=== PATIENT | male | born 1965 | race Caucasian/White ===

== ENCOUNTER 2020-05-23 20:13 | Emergency (ER) | payer OTHER, SELFPAY ==
[2020-05-23 20:14] VITALS: BP 143/94; PULSE 108; RESP 18; TEMP 36.2; O2SAT 100; BMI 25.8
--- NOTE | 2020-05-23 20:42 | RAD_ITS ---
STUDY: X-RAY CHEST REASON FOR EXAM: Male, 55 years old. Chest pain TECHNIQUE: Frontal view of the chest COMPARISON: None. FINDINGS: The lungs are clear. There are no pleural effusions. There is no pneumothorax. The heart is normal in size. The visualized osseous structures are within normal limits. RAD/Chest 1 View (Portable) IMPRESSION: No acute thoracic pathology. Electronically Signed: Artie Coy, at 21:11 EDT Tel , Service support ,
--- NOTE | 2020-05-23 20:42 | EKG12_ITS ---
Test Reason : DIZZY Blood Pressure : / mmHG Vent. Rate : 091 BPM Atrial Rate : 091 BPM P-R Int : 156 ms QRS Dur : 094 ms QT Int : 364 ms P-R-T Axes : 056 065 -11 degrees QTc Int : 447 ms Sinus rhythm with Premature supraventricular complexes Nonspecific ST and T wave abnormality Abnormal ECG Confirmed by SELENE ALFARO, SHANTA ([id number]), editorial director JOSE BERGERON ([id number]) on 05/27/2020 11:16:11 AM Referred By: GABBIE Confirmed By:SHANTA MORTON MD
--- NOTE | 2020-05-23 20:47 | ED.VISSUMM ---
- ER Visit Summary Date of Service: 05/23/20 Chief Complaint: Dizziness, paresthesias, chest pain History of Present Illness: The patient is a 55 M who presents with dizziness that is been getting worse over the past 3 to 5 days. Patient states it is gradually getting worse. Patient describes it as lightheadedness. Patient also admits to some pressure in his left arm and chest that began tonight. Patient states this improves with resting. Patient states he thinks he had COVID-19 3 weeks ago. Patient states his family recently got over COVID-19. Patient admits to subjective chills and sweats. Patient denies any fevers. Patient denies any cough. Patient denies any nausea or vomiting. Physical Examination: Vital signs are stable. Patient is afebrile. Patient is in no acute distress. Oral mucosa is pink and moist. Neck is supple. Trachea is midline. There is no JVD noted. Heart was regular rate and rhythm. Lungs are clear but diminished bilaterally. Abdomen is soft. Bowel sounds are normal. There is no tenderness. There is no rebound or guarding noted. Skin is warm dry. Cranial nerves II through XII are intact. There are no focal motor or sensory deficits noted. Extremities are intact. There is no calf tenderness or edema. Test Results: EKG shows normal sinus rhythm with rate of 91. There are occasional PVCs noted. There are no acute ST or T wave changes. There are no prior EKGs available for comparison. Portable chest x-ray was obtained. There is no acute cardiopulmonary process. This was interpreted by the radiologist and reviewed by myself. CBC and comprehensive metabolic profile were obtained and were essentially within normal limits. Glucose was slightly elevated at 203. Troponin was normal. COVID-19 test was ordered and is pending. Emergency Department Course and Treatment: Patient was given IV fluids. Patient was advised of his findings. Patient was advised that this is likely a viral illness. Patient was advised that this could be COVID-19. Patient was advised his COVID-19 test is a send out and he will need to follow-up with his primary care physician in 3 to 5 days for results. Patient was instructed drink plenty of fluids. Patient was instructed to take Tylenol or ibuprofen as needed for any pain or fever. Patient understood and was agreeable with the plan. All questions were answered. Disposition: Discharge home Impression: Viral illness This note was generated with Dragon dictation software. It may contain incorrect words, spelling, and punctuation that were not noted in review of the chart prior to signing ED Disposition - Plan for ED Patient: Disposition: Home or Assisted Living Diagnosis: Viral illness Instructions: ED Viral Syndrome Referrals: Cosme Anderson MD [Primary Care Provider] - 3-5 Days
[2020-05-23 20:58] LABS: Absolute Lymphocyte Count 1.06 X10^3/uL (0.83-4.51); Absolute Neutrophil Count 7.6 X10^3/uL (2.0-7.7); Basophil# 0.02 X10^3/uL; Basophil% 0.2 % (0-1); Eosinophil# 0.02 X10^3/uL; Eosinophils% 0.2 % (0-5); Hematocrit 43.3 % (40-54); Hemoglobin 14.8 g/dL (13.0-16.5); Lymphocyte # 1.06 X10^3/ul (4.0); Lymphocyte % 11.4 % (19-41); Mean Corp Hgb Conc 34.2 g/dL (32-36); Mean Corpuscular Hgb 31.2 pg (27.0-32.0); Mean Corpuscular Volume 91.2 fL (80-94); Mean Platelet Vol. 9.9 fl (6.2-12.0); Monocyte# 0.56 X10^3/uL; NRBC Flagged by Analyzer 0 % (0-5); Neutrophil # 7.59 X10^3/uL (2.7-7.7); Neutrophil % 81.9 % (47-70); Platelet Count 329 K/mm3 (150-450); RBC Distribution Width CV 11.6 % (11.6-14.6); RBC Distribution Width SD 38.7 fl (35.1-43.9); Red Blood Count 4.75 M/mm3 (4.6-6.2); White Blood Count 9.3 K/mm3 (4.4-11.0)
[2020-05-23 21:14] VITALS: BP 129/86; PULSE 102; RESP 18; TEMP 36.9; O2SAT 98
[2020-05-23 21:15] LABS: ALB/GLOB Ratio 1.1 RATIO (0.9-2.4); AST(SGOT) 18 U/L (15-37); Alanine Aminotransfer ALT/SGPT 16 U/L (16-61); Albumin, Serum 3.9 g/dL (3.2-5.0); Alkaline Phosphatase 57 U/L (45-117); Anion Gap 7 (5-15); BUN 15 mg/dL (7-18); BUN/Creat Ratio 12.8 RATIO (10-20); Calcium,Total 8.8 mg/dL (8.5-10.1); Chloride 108 mmol/L (98-107); Creatinine, Serum 1.17 mg/dL (0.70-1.30); EST Glomerular Filtration Rate 69 mL/min (>60); Est Glom Filt Rate - Afr Amer 84 mL/min (>60); Estimated Creatinine Clearance 80.14 ml/min; Globulin 3.5 g/dL (2.2-4.2); Glucose 203 mg/dL (74-106); Potassium 3.4 mmol/L (3.5-5.1); Protein, Total 7.4 g/dL (6.4-8.2); Sodium Level 139 mmol/L (136-145)
[2020-05-23] MEDS: 0.9% Normal Saline 1,000 ML 1000 ML IV (21:20)
--- NOTE | 2020-05-23 21:45 | ED.RN ---
family updated on patient condition at this time
--- NOTE | 2020-05-23 22:07 | ED.RN ---
family updated on condition at this time
[2020-05-23 22:44] VITALS: BP 152/97; PULSE 95; RESP 16; TEMP 37; O2SAT 98
[2020-05-23 23:35] VITALS: BP 126/81; PULSE 91; RESP 14; O2SAT 97
== END 2020-05-23 23:42 | disposition home or self-care (01) ==
PROVIDERS: Emergency Provider Emergency Medicine
DX: B34.9 Viral infection, unspecified (principal)
CPT/HCPCS: 71045; 80053; 84484; 85025; 87635; 93005; 99283; A4216; U0003

== ENCOUNTER 2023-09-27 06:37 | Day surgery (SDC) | payer SELFPAY, OTHER ==
--- OUTSIDE RECORDS SUMMARY | 2023-09-27 06:42 | XMS RPT_ITS | CCD ---
Author Name Unknown Address [facility] [facility] [address] [place] [address] Organization [facility] Care Team Providers Care Site Auditor Name Role Phone QUETA Hughes CNP, DARLINE Esteban Primary Care Phys ician QUETA Hughes CNP, DARLINE Esteban Attending U ashanti Hughes CNP, DARLINE Esteban Primary Care U navailable QUETA Hughes CNP, DARLINE Esteban Attending U navailable QUETA Hughes CNP, DARLINE Esteban Primary Care U navailable Medications Current Medications Medication Drug Class(es) Dates Sig (Normalized) Sig (Original) aspirin 81 mg oral tablet (4 sources) Platelet Aggregation Inhibitor, Nonsteroidal Anti-inflammatory Drug Start: 06-25-2020 End: 06-20-2021 aspirin 81 mg oral tablet, chewable Dose : 81 mg = 1 tab(s), Oral, qDayM, # 90 tab(s), 3 Refill(s), Pharmacy: [id number], 182.8, cm, 06/25/20 10:45:00 EST, Height, kg, 06/25/20 10:45:00 EST, Dosing Weight Start Date: 06/25/20 Stop Date: 06/20/21 Status: Ordered Problems Problem Classification Problem Date Documented Da te Episodic/Chronic Abdominal hernia (4 sources) Hiatal hernia 06-09-2020 Episodic Results Test Name Value Interpretation Reference Range Facil ity Encounters Encounter Date Encounter Type Care Provider Facility Start: 04-02-2023 End: 04-02-2023 Patient encounter procedure DARLINE Hughes CNP [facility] Start: 09-25-2022 End: 03-05-2023 ambulatory DARLINE Hughes PRODUCT DESIGN MANAGER Facility:[facility] Start: 09-25-2022 End: 09-25-2022 Patient encounter procedure DARLINE Eulalia QUETA DRAWER IN [employer] - PRODUCT DESIGN MANAGER [facility] Start: 12-12-2021 End: 12-13-2021 ambulatory DARLINE Eulalia QUETA DRAWER [employer] - PRODUCT DESIGN MANAGER Facility:[facility] Start: 12-12-2021 End: 12-12-2021 Patient encounter procedure DARLINE Eulalia QUETA DRAWER IN [employer] [employer] - PRODUCT DESIGN MANAGER [facility] Start: 05-23-2021 End: 05-23-2021 Patient encounter procedure DARLINE Esteban QUETA DRAWER IN [employer] - PRODUCT DESIGN MANAGER [facility] Procedures Date Procedure Procedure Detail Performing Clinician Start: 05-28-2020 Cardiac catheterization DARLINE BIRCH DRAWER [employer] - PRODUCT DESIGN MANAGER Payers Date Payer Category Payer Unknown [id number] 1965 Unknown [id number] 1965 Unknown [id number] Social History Date Type Detail Facility Start: 05-30-2020 Never smoked t obacco (finding) [facility] Sex Assigned At [facility] Evaluation + Plan note Laboratory Note Date & Type Note Facility Evaluation + Plan note Future Appointments Appointment Date:06/12/2021 04:00:00 PM Scheduled Provider:DARLINE BIRCH APRN, CNP Location:[facility] Appointment Type: OV Follow Up Future Scheduled TestsSedimentation Rate Automated 06/25/20 [facility] Evaluation + Plan note Note Date & Type Note Facility Evaluation + Plan note Future Appointments Appointment Date:12/18/2021 10:15:00 AM Scheduled Provider: Location:[facility] Appointment Type:CV OV Appointment Date:12/22/2021 08:20:00 AM Scheduled Provider:DARLINE BIRCH APRN, CNP Location:[facility] Appointment Type:PC OV Follow Up [facility] Evaluation + Plan note Note Date & Type Note Facility Evaluation + Plan note Future Appointments Appointment Date:09/28/2022 09:20:00 AM Scheduled Provider:DARLINE BIRCH APRN, CNP Location:[facility] Appointment Type:PC OV Follow Up [facility] Evaluation + Plan note Note Date & Type Note Facility Evaluation + Plan note Future Appointments Appointment Date:04/11/2023 09:40:00 AM Scheduled Provider:DARLINE BIRCH APRN, CNP Location:[facility] Appointment Type:PC OV Follow Up [facility] Hospital course Narrative Note Date & Type Note Facility Hospital course Narrative No data available for this section [facility] Hospital Discharge instructions Note Date & Type Note Facility Hospital Discharge instructions No data available for this section [facility] Progress note Note Date & Type Note Facility Progress note No data available for this section [facility] Summary Purpose Family History No Family History Records Found No data available for this section Advance Directives No Advanced Directives Records Found Additional Source Comments Care Team (unrecognized sect ion and content) Personnel Name: DARLINE BIRCH APRN, CNP Address: [address] [place] [address] Care Team Personnel Name: DARLINE BIRCH APRN, CNP Position: [employer] Handler Member Role: Primary Care Physician Address: Address: [address] [place] [address] Care Team Related Persons Name: FAUSTINA RODRIGUEZ Care Team (unrecognized sect ion and content) Care Team Personnel Name: QUETA, DARLINE D DRAWER IN [employer] - PRODUCT DESIGN MANAGER Position: [employer] Handler Member Role: Primary Care Physician Address: Address: [address] [place] [address]- Care Team Related Persons Name: FAUSTINA RODRIGUEZ (unrecognized sect ion and content) No Status Records Found INFORMATION SOURCE (unrecogn ized section and content) FOR RECORDS PERTAINING TO PATIENTS WHO ARE OR HAVE BEEN ENROLLED IN A CHEMICAL DEPENDENCY/SUBSTANCEABUSE PROGRAM, SOME INFORMATION MAY BE OMITTED. This clinical summary was aggregated from multiple sources. Caution should be exercised in using it in the provision of clinical care. This summary normalizes information from multiple sources, and as a consequence, information in this document may materially change the coding, format and clinical context of patient data. In addition, data may be omitted in some cases. CLINICAL DECISIONS SHOULD BE BASED ON THE PRIMARY CLINICAL RECORDS. [employer] provides no warranty or guarantee of the accuracy or completeness of information in this document.
--- NOTE | 2023-09-27 06:48 | PCM.HP.BLA ---
History and Physical Date of Admission: 09/27/23 isit Reasons: HIATAL HERNIA Chief Complaint: Hiatal Hernia Security Site Supervisor Required: No Is patient in pain?: No Allergies No Known Allergies Allergy (Verified 09/15/23 14:41) Medications aspirin 81 mg capsule 81 mg PO DAILY 09/15/23 [History Confirmed 09/15/23] ezetimibe 10 mg tablet (Zetia) 10 mg PO DAILY 09/15/23 [History Confirmed 09/15/23] metoprolol tartrate 25 mg tablet 12.5 mg PO BID 09/15/23 [History Confirmed 09/15/23] omeprazole 40 mg capsule,delayed release 40 mg PO DAILY 09/15/23 [History Confirmed 09/15/23] [facility] Medical History (Updated 09/15/23 @ 14:38 by Linda Lyle) Abdominal pain Gastroesophageal reflux disease with hiatal hernia History of back problems Hypercholesterolemia Sleep apnea Surgical History (Updated 09/15/23 @ 14:39 by Linda Lyle) History of cardiac cath History of right inguinal hernia repair Family History (Updated 09/15/23 @ 14:39 by Linda Lyle) Father Heart disease Social History (Updated 09/15/23 @ 14:40 by Linda Lyle) Smoking Status: Former smoker alcohol intake: current alcohol intake frequency: holidays/special occasions only substance use type: does not use HPI HPI HPI: 58-year-old gentleman is being referred by César LOCKHART for surgical consultation regarding a hiatal hernia and a written compromise surgical consult recommendations will return to him. The patient has concerns regarding recurrent reflux and heartburn sensation. Recurrent belching. Occasional sore throat. By report he had had a previous barium swallow on June 05, 2020. A small sliding hiatal hernia was noted. As of additional note that June 05, 2020 had a right upper quadrant ultrasound that was normal. He had an echocardiogram on May 28, 2020 demonstrating ejection fraction of 55 to 60%. He also had a chest CT scan June 25, 2020 showing resolution of a 1.4 cm groundglass opacity that was felt to represent postinflammatory change. There was no comment about hiatal hernia in that evaluation. May 28, 2020 had a cardiac catheterization suggesting no evidence of clinically significant obstructive coronary disease. Among his other medications on low-dose aspirin and ezetimibe and metoprolol and omeprazole 40 mg daily.. The patient notes today that he is concerned about some epigastric pressure. He is concerned about a left anterior chest pressure. He states that he will often pressure that extends up his anterior face into his forehead. He notes some grumbling discomfort of his generalized abdomen. He knows that he has hiatal hernia. He states that I assisted an acquaintance of his recently with a hiatal hernia repair. The patient was thinking about going to [place] for surgery.Then he states that rarely does he sense heartburn. ROS General General: No weight change, appetite, fatigue, colon cancer, breast cancer or weakness HEENT HEENT: No difficulty swallowing, eye injury, eye surgery, swollen glands or hoarseness Endo Endocrine: No thyroid disease, diabetes mellitus, thyroid cancer, Hair loss, heat intolerance or cold intolerance Skin Skin: No rash or changing moles Breast Breast: No left breast lump, right breast lump, nipple discharge, breast pain, abnormal mammogram, abnormal US or breast enlargement Musc Musculoskeletal: Yes back problems; No arthritis, rheumatoid arthritis, gout or joint pain Cardio Cardiovascular: No murmur, pacemaker, heart disease, atrial fibrillation, high blood pressure, heart attack, heart stent, palpitations, shortness of breat with exertion or chest pain Additional Details: Hypercholesterolemia Psych Psychiatric: No depression, anxiety or hearing voices Resp Respiratory: No shortness of breath, Yes sleep apnea, No cough, No COPD, No asthma, No emphysema and No wheezing Gastro Gastrointestinal: Yes abdominal pain, No nausea or vomiting, No diarrhea, No constipation, No blood in stool, No acid reflux, No hemorrhoids, No ulcers, No gallbladder problem and No black,tarry stools Palmer Hematologic: No blood thinners, No blood disorders, No bleeding, No anemia and No blood clots Additional Details: Baby aspirin daily Neuro Neurologic: No system reviewed and no additional complaints, except as documented, No as per HPI, No abnormal gait, No abnormal hearing, No abnormal movements, No abnormal speech, No behavioral changes, No burning sensations, No confusion, No convulsions, No disequilibrium, No dizziness, No localized weakness, No frequent falls, No headache(s), No lack of coordination, No loss of vision, No memory loss, No numbness, No other visual disturbances, No radicular pain, No restless legs, No sensory deficit, No syncope, No tingling, No tremor(s), No weakness and No other Exam Const General: cooperative, healthy appearing, comfortable and no acute distress HENMT Head: normal to inspection Eyes General: appearance normal, both eyes and all related structures Neck Neck: normal visual inspection Chest Chest palpation & inspection: normal inspection of the chest Resp Effort & Inspection: normal respiratory effort Auscultation: clear to auscultation bilaterally Cardio Rate: regular rate Rhythm: regular rhythm GI Palpation: soft and no hepatosplenomegaly Musc Cervical Spine: normal cervical lordosis Skin General: no rashes or lesions noted Neuro General: patient alert, patient awake and patient oriented x3 Extrem General: normal to inspection and no calf tenderness Psych Appearance: grossly normal Assessment and Plan Assessment and Plan (1) Gastroesophageal reflux disease with hiatal hernia: Status: Acute Plan: I instructed the patient that I had a lesser suspicion that his left anterior chest discomfort is GI in nature. I think very possibly his epigastric discomfort and intermittent reflux symptoms we should further assess with an esophagogastroduodenoscopy with possible biopsy. He has generalized abdominal discomfort is less clear. The patient states that most of the symptoms occurred in 2019 after he incurred COVID-19. We briefly discussed surgical treatment options for symptomatic hiatal hernias. I am not sure that he will need this direction. If I will base this upon the findings of the upper endoscopy. He has had an opportunity to ask and have questions answered. He is willing to pursue the upper scope and then we can help direct him further. I appreciate the option of assisting with the surgical care. Copy: César Jonas, COMPENSATION MANAGER Jossue Belle M.D., F.A.C.S I have examined the patient and the H&P has been reviewed. There are no clinical changes since date of exam. Jossue Belle M.D., F.A.C.S.
[2023-09-27] MEDS: Lactated Ringers 1,000 ML 15 ML IV (07:02)
[2023-09-27 07:03] VITALS: BP 121/79; PULSE 74; RESP 18; TEMP 36.7; O2SAT 100; BMI 26.1
--- NOTE | 2023-09-27 07:30 | EGD_PTH ---
PATHOLOGY RESULTS PATIENT: SAKINA RODRIGUEZ LOC: EN U#:[id number] AGE/SX: 58/M ROOM: RE09/27/[address]: Dr. Jossue Belle MD : 1965 BED: DIS: 09/27/2023 SPEC #: [id number] RECD: 09/27/23 11:33 STATUS: YOAN YVETTE #: [id number] MENDEZ: 09/27/23 07:[address]: Jossue Belle DEPT: SURGICAL PATHOLOGY RECD BY: Britney Martinez ENTERED: 09/27/23 11:33 SP TYPE: EGD BIOPSY OTHR DR: Cosme Jonas, CLINICAL SAFETY SPECIALIST-C Tissues: Gastric mucous membrane Gastric mucous membrane Esophageal mucous membrane Esophageal mucous membrane Esophageal mucous membrane Procedures: Special Stain Group II Surgery Specimen Level IV Alcian Blue/PAS (control) HEADER OPERATION: EGD with biopsy PRE-OP DIAGNOSIS: GERD with hiatal hernia TISSUE SUBMITTED: A - Antrum biopsy for histo and H. pylori, B - Fundic polyp biopsy, C - Distal esophagus biopsy, D - Mid esophagus biopsy, E - Proximal esophagus biopsy MICROSCOPIC DIAGNOSIS A. Gastric antrum, biopsy: Chronic gastritis. See comment. B. Gastric fundus polyp, biopsy: Fundic gland polyp. C. Distal esophagus, biopsy: Gastroesophageal junctional mucosa with mild chronic inflammation. Focal changes of reflux. No evidence of goblet cell metaplasia. See comment. D. Mid esophagus, biopsy: Fragments of benign squamous mucosa. No evidence of inflammation. Fragment of gastric mucosa with minimal chronic inflammation. E. Proximal esophagus, biopsy: Gastroesophageal junctional mucosa with chronic inflammation. Focal changes of reflux. No evidence of goblet cell metaplasia. See comment. AM:florentin 09/28/2023 COMMENT A. The results of immunohistochemistry for Helicobacter pylori will be reported separately ([id number]). C & E. Alcian blue/PAS stain with matched control supports the above diagnosis. MICROSCOPIC DESCRIPTION Slides are reviewed. GROSS DESCRIPTION A - Received in fixative is one container labeled with the patient's name and designated antrum biopsy. The specimen consists of one irregular fragment of light cisneros soft tissue that measures 0.4 x 0.3 x 0.1 cm. The specimen is totally submitted in one cassette. B - Received in fixative is one container labeled with the patient's name and designated fundic polyp biopsy. The specimen consists of one irregular fragment of light cisneros soft tissue that measures 0.3 x 0.3 x 0.1 cm. The specimen is totally submitted in one cassette. C - Received in fixative is one container labeled with the patient's name and designated distal esophagus. The specimen consists of multiple irregular fragments of light cisneros soft tissue that in aggregate measure 2.0 x 0.6 x 0.1 cm. The specimen is totally submitted in one cassette. D - Received in fixative is one container labeled with the patient's name and designated mid esophagus biopsy. The specimen consists of two irregular fragments of light cisneros soft tissue that in aggregate measure 0.8 x 0.4 x 0.1 cm. The specimen is totally submitted in one cassette. E - Received in fixative is one container labeled with the patient's name and designated proximal esophagus. The specimen consists of two irregular fragments of light cisneros soft tissue that in aggregate measure 0.6 x 0.3 x 0.1 cm. The specimen is totally submitted in one cassette. / SJ:rg 09/27/2023 TC:3 [facility]: [id number] x5, [id number] x2
--- NOTE | 2023-09-27 07:30 | IMM_PTH ---
PATHOLOGY RESULTS PATIENT: SAKINA RODRIGUEZ LOC: [place] U#:[id number] AGE/SX: 58/M ROOM: RE09/27/[address]: Dr. Jossue Belle MD : 1965 BED: DIS: 09/27/2023 SPEC #: [id number] RECD: 09/27/23 13:09 STATUS: YOAN YVETTE #: [id number] MENDEZ: 09/27/23 07:[address]: Jossue Belle DEPT: IMMUNOHISTOCHEMISTRY RECD BY: Odette Mandujano ENTERED: 09/27/23 13:10 SP TYPE: IMMUNO OTHR DR: Cosme Jonas, COOK JELLY-C Tissues: Stomach, NOS Procedures: H Pylori (initial) PHYSICIAN & INSTITUTION [place] [id number] SPECIMEN INFORMATION: Tissue Source: A - Antrum Clinical Info: GERD with hiatal hernia Specimen Number: [id number] CPT code: 94393 METHODOLOGY: Deparaffinized sections of prefer/formalin-fixed tissue or PAP/DQ stained slides are incubated with monoclonal/polyclonal antibodies/oligonucleotide probes. Localization is made via biotin free immunoperoxidase method. Appropriate controls are performed and reacted as expected. Results on target cell population are indicated in the following table: RESULTS: ANTIBODY / CLONE RESULT Block A H Pylori (polyclonal) negative These tests were developed and their performance characteristics determined by [facility]. They may not have been cleared or approved by the U.S. Food and Drug Administration. The FDA has determined that such clearance or approval is not necessary. The above immunohistochemical/dualISH markers are ordered and reviewed by the Pathologist. INTERPRETATION: A. Antrum, biopsy: Negative for Helicobacter pylori organisms. AM:florentin 09/28/2023
[2023-09-27 07:40] VITALS: BP 121/79; BP 94/66; PULSE 73; RESP 16; TEMP 36.3; O2SAT 96
--- NOTE | 2023-09-27 07:43 | OP.EGD_ITS ---
Patient Name: Darion Dinero Procedure Date: 09/27/2023 7:17 AM Date of : 1965 Age: 58 Procedure: Upper GI endoscopy Indications: Unexplained chest pain Providers: Jossue Belle MD Referring MD: No Primary Care Physician Medicines: See the Anesthesia note for documentation of the administered medications Complications: No immediate complications. Procedure: Pre-Anesthesia Assessment: - Prior to the procedure, a History and Physical was performed, and patient medications and allergies were reviewed. The patient's tolerance of previous anesthesia was also reviewed. The risks and benefits of the procedure and the sedation options and risks were discussed with the patient. All questions were answered, and informed consent was obtained. Prior Anticoagulants: The patient has taken no anticoagulant or antiplatelet agents. ASA Grade Assessment: II - A patient with mild systemic disease. After reviewing the risks and benefits, the patient was deemed in satisfactory condition to undergo the procedure. After obtaining informed consent, the endoscope was passed under direct vision. Throughout the procedure, the patient's blood pressure, pulse, and oxygen saturations were monitored continuously. The gastroscope was introduced through the mouth, and advanced to the second part of duodenum. The upper GI endoscopy was accomplished without difficulty. The patient tolerated the procedure well. Scope In: 7:25:41 AM Scope Out: 7:35:05 AM Total Procedure Duration Time 0 hours 9 minutes 24 seconds Findings: There were esophageal mucosal changes suspicious for short-segment Young's esophagus present in the proximal esophagus. The maximum longitudinal extent of these mucosal changes was 2 cm in length. Mucosa was biopsied with a cold forceps for histology. A small hiatal hernia was present. The Z-line was variable and was found 44 cm from the incisors. Biopsies were taken with a cold forceps for histology. The middle third of the esophagus was normal. Biopsies were taken with a cold forceps for histology. The entire examined stomach was normal. Biopsies were taken with a cold forceps for histology. A few sessile polyps with no bleeding and no stigmata of recent bleeding were found in the gastric fundus. The polyp was removed with a cold biopsy forceps. Resection and retrieval were complete. The examined duodenum was normal. Impression: - Esophageal mucosal changes suspicious for short-segment Young's esophagus. Biopsied. - Small hiatal hernia. - Z-line variable, 44 cm from the incisors. Biopsied. - Normal middle third of esophagus. Biopsied. - Normal stomach. Biopsied. - A few gastric polyps. Resected and retrieved. - Normal examined duodenum. Recommendation: - Return to my office in 2 weeks Wide open esophagus ongoing for reflux. Suspicious for Young's esophagus at the EG junction. Suspicious for Young's esophagus the proximal esophagus. Consider esophageal manometry and possible surgical reflux procedure.. - Continue present medications. Procedure Code(s): --- Professional --- 26817, Esophagogastroduodenoscopy, flexible, transoral; with biopsy, single or multiple Diagnosis Code(s): --- Professional --- K22.89, Other specified disease of esophagus K44.9, Diaphragmatic hernia without obstruction or gangrene K31.7, Polyp of stomach and duodenum R07.9, Chest pain, unspecified CPT copyright 2021 [employer]. All rights reserved. The codes documented in this report are preliminary and upon business consult review may be revised to meet current compliance requirements. Jossue Belle MD 09/27/2023 7:42:34 AM This report has been signed electronically. Number of Addenda: 0 Note Initiated On: 09/27/2023 7:17 AM
--- NOTE | 2023-09-27 07:43 | OP.CCLET_ITS ---
09/27/2023 No Primary Care Physician Re : Upper GI endoscopy procedure for Darion Dinero Dear Care Physician This procedure was performed on Wednesday, September 27, 2023. My impressions and recommendations are as follows: Impressions : - Esophageal mucosal changes suspicious for short-segment Young's esophagus. Biopsied. - Small hiatal hernia. - Z-line variable, 44 cm from the incisors. Biopsied. - Normal middle third of esophagus. Biopsied. - Normal stomach. Biopsied. - A few gastric polyps. Resected and retrieved. - Normal examined duodenum. Recommendations : - Return to my office in 2 weeks Wide open esophagus ongoing for reflux. Suspicious for Young's esophagus at the EG junction. Suspicious for Young's esophagus the proximal esophagus. Consider esophageal manometry and possible surgical reflux procedure.. - Continue present medications. My findings are described in the full procedure note, which is enclosed. If I can be of further assistance, please feel free to contact me at Doctor phone number(s): Work: . Sincerely, Jossue Belle MD 09/27/2023 7:42:34 AM This report has been signed electronically.
[2023-09-27 07:45] VITALS: BP 105/69; BP 121/79; PULSE 68; RESP 16; O2SAT 100
[2023-09-27 07:50] VITALS: BP 104/68; BP 121/79; PULSE 69; RESP 16; TEMP 36.3; O2SAT 98
[2023-09-27 08:03] VITALS: BP 121/79
== END 2023-09-27 08:41 | disposition home or self-care (01) ==
LOC: EN 06:39 → AC 06:40
PROVIDERS: PCP Nurse Practitioner Family; Referring Provider Nurse Practitioner Family; Visit Provider Surgery
PROC: 0DJ08ZZ Inspection of Upper Intestinal Tract, Via Natural or Artificial Opening Endoscopic (ICD-10-PCS; CPT 43235; principal; 2023-09-27 07:25)
DX: K29.50 Unspecified chronic gastritis without bleeding (principal); K44.9 Diaphragmatic hernia without obstruction or gangrene; K31.7 Polyp of stomach and duodenum; K22.89 Other specified disease of esophagus; K21.9 Gastro-esophageal reflux disease without esophagitis; R07.89 Other chest pain; I25.10 Atherosclerotic heart disease of native coronary artery without angina pectoris; Z79.82 Long term (current) use of aspirin; Z79.899 Other long term (current) drug therapy; Z86.16 Personal history of COVID-19; Z87.891 Personal history of nicotine dependence
CPT/HCPCS: 43239; 88305; 88313; 88342; J7120; J2405

== ENCOUNTER 2023-10-07 09:16 | Day surgery (SDC) | payer SELFPAY, OTHER ==
[2023-10-07 09:28] VITALS: BP 132/81; PULSE 77; RESP 16; TEMP 36.2; O2SAT 99
[2023-10-07] MEDS: Lidocaine Jelly 2% 20 ML Syringe (URO-JET) 1 APPLIC (09:29)
== END 2023-10-07 10:01 | disposition home or self-care (01) ==
LOC: SDC 09:16
PROVIDERS: PCP Nurse Practitioner Family; Referring Provider Nurse Practitioner Family; Visit Provider Surgery
PROC: F00ZJWZ Instrumental Swallowing and Oral Function Assessment using Swallowing Equipment (ICD-10-PCS; CPT 43235; principal; 2023-10-07 09:25)
DX: K21.9 Gastro-esophageal reflux disease without esophagitis (principal)
CPT/HCPCS: 91010

== ENCOUNTER 2023-12-21 05:34 | Day surgery (SDC) | payer SELFPAY, OTHER ==
--- NOTE | 2023-12-12 08:19 | EKG12_ITS ---
Test Reason : PRE OP Blood Pressure : / mmHG Vent. Rate : 056 BPM Atrial Rate : 056 BPM P-R Int : 166 ms QRS Dur : 086 ms QT Int : 408 ms P-R-T Axes : 072 077 058 degrees QTc Int : 393 ms Sinus bradycardia Otherwise normal ECG Confirmed by Srinath Hay ([id number]), senior technical editor JOSE BERGERON ([id number]) on 12/12/2023 1:03:20 PM Referred By: JONATHON Confirmed By:Srinath Hay
[2023-12-12 09:29] LABS: Hematocrit 41.3 % (40-54); Hemoglobin 14.1 g/dL (13.0-16.5); Mean Corp Hgb Conc 34.1 g/dL (32-36); Mean Corpuscular Hgb 31.7 pg (27.0-32.0); Mean Corpuscular Volume 92.8 fL (80-94); Platelet Count 218 K/mm3 (150-450); RBC Distribution Width CV 12.3 % (11.6-14.6); RBC Distribution Width SD 41.9 fl (35.1-43.9); Red Blood Count 4.45 M/mm3 (4.6-6.2); White Blood Count 4.2 K/mm3 (4.4-11.0)
[2023-12-12 10:09] LABS: Anion Gap 4 (5-15); BUN 22 mg/dL (7-18); Calcium,Total 8.7 mg/dL (8.5-10.1); Chloride 107 mmol/L (98-107); EST Glomerular Filtration Rate 82 mL/min (>60); Est Glom Filt Rate - Afr Amer 99 mL/min (>60); Glucose 92 mg/dL (74-106); Potassium 3.5 mmol/L (3.5-5.1); Sodium Level 138 mmol/L (136-145)
[2023-12-21] VITALS (14 sets, daily range): BP systolic 116–150; BP diastolic 79–103; PULSE 48–80; RESP 14–18; TEMP 36.1–37.2; O2SAT 94–100; BMI 25.9
[2023-12-21] MEDS: Lactated Ringers 1,000 ML 15 ML IV ×2 (06:16→11:49)
--- NOTE | 2023-12-21 06:32 | HP.PCM_ITS ---
History and Physical Date of Admission: 12/21/23 Intake Visit Reasons: discuss surgery plan & esophageal manometry Chief Complaint: manometry f/u Design Checker Required: No Is patient in pain?: No Allergies No Known Allergies Allergy (Verified 11/14/23 14:44) Medications aspirin 81 mg capsule 81 mg PO DAILY 09/15/23 [History Confirmed 11/14/23] ezetimibe 10 mg tablet (Zetia) 10 mg PO DAILY 09/15/23 [History Confirmed 11/14/23] metoprolol tartrate 25 mg tablet 12.5 mg PO BID 09/15/23 [History Confirmed 11/14/23] omeprazole 40 mg capsule,delayed release 40 mg PO DAILY 09/15/23 [History Confirmed 11/14/23] [facility] Medical History Abdominal pain Cardiology follow-up encounter Chest pain Gastroesophageal reflux disease with hiatal hernia History of back problems History of edema History of stress test Hypercholesterolemia Sleep apnea Surgical History History of right inguinal hernia repair Family History Father Heart disease Social History Smoking Status: Former smoker alcohol intake: current alcohol intake frequency: holidays/special occasions only substance use type: does not use HPI HPI HPI: 58-year-old gentleman returns today to discuss ongoing reflux problems and results of esophagogastroduodenoscopy and esophageal manometry as noted below. October 07, 2023 Esophageal manometry demonstrated 10 swallows analyzed with good food bolus clearance. Normal study. September 27, 2023 Impression: - Esophageal mucosal changes suspicious for short-segment Young's esophagus. Biopsied. - Small hiatal hernia. - Z-line variable, 44 cm from the incisors. Biopsied. - Normal middle third of esophagus. Biopsied. - Normal stomach. Biopsied. - A few gastric polyps. Resected and retrieved. - Normal examined duodenum. Recommendation: - Return to my office in 2 weeks Wide open esophagus ongoing for reflux. Suspicious for Young's esophagus at the EG junction. Suspicious for Young's esophagus the proximal esophagus. Consider esophageal manometry and possible surgical reflux procedure. Gastritis with negative H. pylori. Benign fundic gland polyp. Reflux esophagitis distal esophagus and mid esophagus and proximal esophagus with abnormal gastroesophageal mucosa in the proximal esophagus. My previous history reflects the following 58-year-old gentleman is being referred by César LOCKHART for surgical consu ltation regarding a hiatal hernia and a written compromise surgical consult recommendations will return to him. The patient has concerns regarding recurrent reflux and heartburn sensation. Recurrent belching. Occasional sore throat. By report he had had a previous barium swallow on June 05, 2020. A small sliding hiatal hernia was noted. As of additional note that June 05, 2020 had a right upper quadrant ultrasound that was normal. He had an echocardiogram on May 28, 2020 demonstrating ejection fraction of 55 to 60%. He also had a chest CT scan June 25, 2020 showing resolution of a 1.4 cm groundglass opacity that was felt to represent postinflammatory change. There was no comment about hiatal hernia in that evaluation. May 28, 2020 had a cardiac catheterization suggesting no evidence of clinically significant obstructive coronary disease. Among his other medications on low-dose aspirin and ezetimibe and metoprolol and omeprazole 40 mg daily.. The patient notes today that he is concerned about some epigastric pressure. He is concerned about a left anterior chest pressure. He states that he will often pressure that extends up his anterior face into his forehead. He notes some grumbling discomfort of his generalized abdomen. He knows that he has hiatal hernia. He states that I assisted an acquaintance of his recently with a hiatal hernia repair. The patient was thinking about going to [place] for surgery.Then he states that rarely does he sense heartburn ROS General General: No weight change, appetite, fatigue, colon cancer, breast cancer or weakness HEENT HEENT: No difficulty swallowing, eye injury, eye surgery, swollen glands or hoarseness Endo Endocrine: No thyroid disease, diabetes mellitus, thyroid cancer, Hair loss, heat intolerance or cold intolerance Skin Skin: No rash or changing moles Breast Breast: No left breast lump, right breast lump, nipple discharge, breast pain, abnormal mammogram, abnormal US or breast enlargement Musc Musculoskeletal: Yes back problems; No arthritis, rheumatoid arthritis, gout or joint pain Cardio Cardiovascular: No murmur, pacemaker, heart disease, atrial fibrillation, high blood pressure, heart attack, heart stent, palpitations, shortness of breat with exertion or chest pain Additional Details: Hypercholesterolemia Psych Psychiatric: No depression, anxiety or hearing voices Resp Respiratory: No shortness of breath, Yes sleep apnea, No cough, No COPD, No asthma, No emphysema and No wheezing Gastro Gastrointestinal: Yes abdominal pain, No nausea or vomiting, No diarrhea, No constipation, No blood in stool, No acid reflux, No hemorrhoids, No ulcers, No gallbladder problem and No black,tarry stools Palmer Hematologic: No blood thinners, No blood disorders, No bleeding, No anemia and No blood clots Additional Details: Baby aspirin daily Neuro Neurologic: No system reviewed and no additional complaints, except as documented, No as per HPI, No abnormal gait, No abnormal hearing, No abnormal movements, No abnormal speech, No behavioral changes, No burning sensations, No confusion, No convulsions, No disequilibrium, No dizziness, No localized weakness, No frequent falls, No headache(s), No lack of coordination, No loss of vision, No memory loss, No numbness, No other visual disturbances, No radicular pain, No restless legs, No sensory deficit, No syncope, No tingling, No tremor(s), No weakness and No other Exam Const General: cooperative, healthy appearing and comfortable Nutritional Appearance: average body habitus [facility] Head: normal to inspection Eyes General: appearance normal, both eyes and all related structures Neck Neck: normal visual inspection Chest Chest palpation & inspection: normal inspection of the chest Resp Effort & Inspection: normal respiratory effort Auscultation: clear to auscultation bilaterally Cardio Rate: regular rate Rhythm: regular rhythm GI Palpation: soft and no hepatosplenomegaly Auscultation: normal bowel sounds Skin General: no rashes or lesions noted Neuro General: patient alert, patient awake and patient oriented x3 Extrem General: normal to inspection and no calf tenderness Psych Appearance: grossly normal Assessment and Plan Assessment and Plan (1) Gastroesophageal reflux disease with hiatal hernia: Status: Acute Plan: We discussed the patient's hiatal hernia wide open lower esophageal sphincter and reflux symptoms. Fortunately the changes were not Young's so they clinically looked similar. I do recommend to him a follow-up upper endoscopy at 3 years. We discussed surgical reflux procedure and at age 58 I am recommending to him a laparoscopic Ashley fundoplication because it is of ability to assist with reflux and its durability. We discussed the technique, benefit, risk, alternatives. No guarantees of success were offered. He has had an opportunity ask and have questions answered. He is is interested in scheduling and proceeding as noted. We have provided him written dietary and physical activity limitation instruction sheets. We did discuss gagging and vomiting potential post procedure and the risks to the repair. We discussed the ultimate goal of having him being up to come off his proton pump inhibitors. He has had an opportunity ask and have questions answered. We will schedule procedure at his discretion. I appreciate the option of assisting with his surgical care. It is of additional the patient states that he can feel an item in his abdomen and can nearly can push it and rub it down. I did do a specific exam where he pointed and believe that he is simply manipulating if that the greater omentum of the transverse colon. I could not detect a focal abdominal mass of concern. We briefly discussed pursuing a CT of the abdomen but I believe as this finding has been present to him for 3 years that this likely is simply somewhat of the transverse colon that he is intermittently able to gently manipulate. I could not detect anything of concern on exam. Copy: César Jonas, FINANCIAL AID MANAGER-C Jossue Belle M.D., F.A.C.S. I have examined the patient and the H&P has been reviewed. There are no clinical changes since date of exam. Jossue Belle M.D., F.A.C.S.
--- NOTE | 2023-12-21 07:15 | EX.PCM.DISCH ---
Discharge Instructions Procedure General Surgery Activity Discharge Activity: May Not Drive (for 3-5 days or while taking narcotic pain medicine.) May shower in (days): 1 Lifting Restrictions: 10 pounds Dressing / Incision Call your doctor if your incision/area has: Continuous Slow Oozing, Sudden Increased Bleeding, Increased Pain/ Swelling, Increased Redness and Foul Smelling Discharge Call your doctor if you observe: Fever of 101 or Higher Suture Line Care: Avoid Pulling/Pushing and Avoid Pinching/Bending Additional Dressing/Incision Instructions:: Change or remove dressing in 4 days. Leave steri-strips in place for 1 week. Follow Up Care Please Follow Up With: Jossue Belle MD When: Call [phone] to make an appointment to be seen in about 10 days. Test Results: Please follow the recently provided dietary and activity instruction sheets Discharge Plan Admission Attending Provider: Jossue Belle Primary Care Provider: Cosme Jonas NP Instructions Print Language: Tunisian Discharge Orders/Prescriptions Prescriptions: No Action aspirin 81 mg capsule 81 mg PO DAILY ezetimibe [Zetia] 10 mg tablet 10 mg PO DAILY metoprolol tartrate 25 mg tablet 12.5 mg PO BID Patient Comments: TAKE 1/2 (ONE-HALF) TABLET BY MOUTH TWICE DAILY pantoprazole 40 mg tablet,delayed release (DR/EC) 40 mg PO DAILY Referrals / Follow Up: Cosme Jonas DECK ENGINE OPERATOR, DECK ENGINE OPERATOR-C [Primary Care Provider] - Disposition Disposition (needs filled in before D/C Order can be placed): Home, Self Care
[2023-12-21] MEDS: Cefazolin 2 GM in 0.9% Normal Saline (100mL Bag) 100 ML IV (07:26)
[2023-12-21] MEDS: Bupivacaine Mpf 0.5% 30 ML VIAL (09:43)
--- NOTE | 2023-12-21 09:53 | OP.PCM_ITS ---
Report of Operation Date of Procedure: 12/21/23 Pre-Operative Diagnosis: Intractable gastroesophageal reflux disease with hiatal hernia Post-Operative Diagnosis: Same Surgery/Procedure Performed:: Laparoscopic repair of hiatal hernia with laparoscopic Ashley fundoplication and esophagogastroduodenoscopy Description of Surgical Findings:: Timeout informed consent was obtained. 58-year-old gentleman was taken to the op room placed upon the table he underwent general endotracheal ovation esthesia Ancef 2 g reviewed intravenously he was on a beanbag which was carefully insufflated he was placed in a low lithotomy position. The abdomen was sterilely prepped and draped. 0.5% Marcaine was used as a local anesthetic. Skin sites were Mitali size. In the right mid epigastric area under 5 mm Visiport technology got clean access to the abdomen. The abdomen was insufflated with CO2 to a pressure of 10 mmHg pressure. A 10 mm trocar was placed in the left epigastric area and then 2 more 5 mm trocars were placed left subcostal. These were done under direct visualization. Then further superiorly in the epigastric area 5 mm puncture site was created to place a medium Tere retractor which was then secured to elevate the left lobe of the liver. I then incised the pars flaccida with harmonic scalpel took this over the anterior surface of the EG junction then addressed the greater curvature of the stomach. Unfortunately the short gastrics were very short and quite adherent posteriorly into the splenic area. Very tedious and cautious dissection was performed with harmonic scalpel used to obtain precise hemostasis. Was able to completely roll that anteriorly dissected off the left crura liu with blunt and harmonic scalpel dissection. Then came back to the right liu further cleared that there is swim maneuver and got behind the esophagus clearly identifying the posterior vagus nerve and preserving it. Placed 1/2 inch [place] drain to elevate the the EG junction and then in a 360 degree circumferential dissection with blunt dissection harmonic scalpel dissection completely freed the distal portion of the esophagus. Good visualization had been achieved. The crura appeared to be nicely and intact. The posterior fat pad was dissected free as well. Using pledgeted 0 Ethibond sutures I then approximated the crura of the diaphragm with simple sutures. 3 sutures sutures were placed a 46 Indonesian bougie was placed and there was good proximation. Then wrapped the fundus of the stomach around the posterior aspect of the esophagus I secured the posterior that wrap to the crura. I then secured the very apical portion of the wrap profundus to the wrap of the wrap to the esophagus to the epiphrenic ligament to the wrap portion of the fundus. That was with a pledgeted 0 Ethibond. I then placed 2 additional 2-0 Ethibond sutures. A fundus to the anterior wall of the esophagus and then to the fundus. [place] that I had a nice loose short floppy wrap. The abdomen was then in the epigastric area filled with saline. I performed a upper endoscopy which is dictated in probation. There is no air leak. The wrap was intact. I then aspirated free all of the excess fluid. Remove the Tere retractor. He had a nerve block with the 0.5% Marcaine under laparoscopic visualization in the epigastric and left subcostal area. I then repaired the 10 mm port site with a 0 Vicryl and a grainy needle in a s imple suture. The abdomen is allowed to deflated the CO2. Skin edges were approximated and opted for Monocryl subdermal stitches. Steri-Strips Telfa OpSite dressings applied. Sponge and instrument and needle counts were reported to the surgeon to be correct. Specimens none. Drains none. Blood loss very minimal. The procedure seemed to go very smoothly and the end result appeared to be nice and intact. The patient was taken to the recovery room in satisfied condition without apparent complication. Jossue Belle M.D., F.A.C.S. Surgeon: Jossue Belle Type of Anesthesia: General and Local Anesthesiologist: Loc Chou
[2023-12-21] MEDS: Ketorolac 30 MG/ML Syringe IM (10:41)
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
== END 2023-12-21 15:54 | disposition home or self-care (01) ==
LOC: SDC 05:37 → AC 05:37
PROVIDERS: PCP Nurse Practitioner Family; Referring Provider Surgery; Visit Provider Surgery
PROC: (CPT 43325; principal; 2023-12-21 07:10)
DX: K44.9 Diaphragmatic hernia without obstruction or gangrene (principal); Z87.891 Personal history of nicotine dependence; E78.00 Pure hypercholesterolemia, unspecified; Z79.82 Long term (current) use of aspirin; Z79.899 Other long term (current) drug therapy; K21.9 Gastro-esophageal reflux disease without esophagitis; I10 Essential (primary) hypertension
CPT/HCPCS: 43281; 00790; 36415; 80048; 85027; 93005; J7120; J2405